=== PATIENT | male | born 1950 | race Hispanic/Latino ===

== ENCOUNTER → 2017-09-22 | Outpatient (CLI) | payer OTHER ==
--- NOTE | 2017-09-24 00:35 | Diagnostic Imaging Report ---
History: TIA, loss of vision Comparison studies: None Technique: Sagittal T2; axial DWI, FLAIR, MPGR, T1, Coronal FLAIR. Intravenous contrast: None Findings: Scalp: Normal in signal . No masses . Bone marrow: Normal in signal intensity. Extra-axial: No masses or fluid collections. Brain sulci: Appropriate for age. Ventricles: Normal in size . No hydrocephalus . Parenchyma: A few scattered T2 FLAIR hyperintense foci in the supratentorial white matter are nonspecific small vessel ischemic changes. No masses, hemorrhage, acute or chronic cortical ischemic insults. Suprasellar region: No abnormalities. Craniocervical junction: No abnormalities. Patent foramen magnum. No Chiari one malformation. Vessels: Normal flow-voids in the arteries and sinuses. IMPRESSION: 1. Mild supratentorial white matter small vessel ischemic changes. 2. Otherwise, no abnormalities. 3. Specifically, no acute vascular insults. Signed by: Dr. James Kim M.D. on 09/24/2017 12:31 AM
== END ==
LOC: MRI 08:20
PROVIDERS: ATTEND Family Medicine
DX: G45.9 Transient cerebral ischemic attack, unspecified (principal)
CPT/HCPCS: 70551

== ENCOUNTER 2021-05-09 00:41 | Emergency (ER) | payer MEDICARE, OTHER ==
[~2021-05-09] VITALS: Ht 180.3 cm; Wt 113.4 kg
[2021-05-09 01:12] LABS: BASOPHILS # (AUTO) 0.1 (0.0-0.1); BASOPHILS % 0.4 % (0.0-1.0); EOSINOPHILS # (AUTO) 0.1 (0.0-0.4); EOSINOPHILS % 0.5 % (0.0-6.0); HEMATOCRIT 43.5 % (38.2-49.6); HEMOGLOBIN 14.6 g/dL (14.0-18.0); LYMPHOCYTES % 9.5 % (18.0-39.1); MEAN CORPUSCULAR HEMOGLOBIN 31.3 pg (28-32); MEAN CORPUSCULAR HGB CONC 33.6 g/dL (31-35); MEAN CORPUSCULAR VOLUME 93.1 fL (81-99); MONOCYTES # (AUTO) 1.7 (0.2-0.8); MONOCYTES % 8.4 % (4.4-11.3); NEUTROPHILS # (AUTO) 16.7 (2.1-6.9); NEUTROPHILS % 80.7 % (38.7-80.0); PLATELET COUNT 277 x10e3/uL (140-360); RED BLOOD COUNT 4.67 x10e6/uL (4.3-5.7); RED CELL DISTRIBUTION WIDTH 13.6 % (11.7-14.4)
[2021-05-09 01:33] LABS: ALBUMIN 3.6 g/dL (3.5-5.0); ALBUMIN/GLOBULIN RATIO 0.9 (0.8-2.0); ANION GAP 16.7 mmol/L (8-16); CALCIUM 9.8 mg/dL (8.4-10.2); CREATININE, SERUM 0.94 mg/dL (0.72-1.25); POTASSIUM 3.7 mmol/L (3.5-5.1)
[2021-05-09 01:34] LABS: CLARITY,URINE SL CLOUDY (CLEAR); COLOR,URINE ORANGE (YELLOW)
[2021-05-09 01:35] LABS: KETONES,URINE NEGATIVE (NEGATIVE); LEUKOCYTE ESTERASE ,URINE NEGATIVE (NEGATIVE); NITRITE,URINE POSITIVE (NEGATIVE); PROTEIN,URINE DIPSTICK 1+ (NEGATIVE); URINE UROBILINOGEN 1 mg/dL (0.2 - 1)
[2021-05-09] MEDS ORDERED: CEFTRIAXONE 1 GM in SODIUM CHLORIDE 0.9% 50ML 50 ML IV ONE (01:45)
[2021-05-09] MEDS ORDERED: SODIUM CHLORIDE 0.9% 1000ML 1,000 ML IV ONE (02:00)
[2021-05-09] MEDS ORDERED: SODIUM CHLORIDE 0.9% 1000ML 1,000 ML ONE (02:03)
[2021-05-09 02:14] LABS: BACTERIA,URINE MANY /HPF; EPITHELIAL CELLS,URINE FEW /LPF; MUCUS,URINE MANY (RARE); RBC,URINE 0-5 /HPF (0-5)
[2021-05-09] MEDS ORDERED: CEFDINIR300 MG PO (02:33)
[2021-05-09 02:59] VITALS: BP 160/91
== END 2021-05-09 02:58 | disposition home or self-care (01) ==
LOC: ER 00:47
DX: R33.9 Retention of urine, unspecified (principal); N39.0 Urinary tract infection, site not specified; I10 Essential (primary) hypertension; E78.5 Hyperlipidemia, unspecified
CPT/HCPCS: 36415; 51702; 80053; 81001; 85025; 87086; 99283; J0696; J7030; 51700

== ENCOUNTER 2021-05-10 10:49 | Emergency (ER) | payer MEDICARE ==
[~2021-05-10] VITALS: Ht 180.3 cm; Wt 113.4 kg
[~2021-05-10 10:49] MED LIST: CEFDINIR300 MG PO
== END 2021-05-10 11:51 | disposition home or self-care (01) ==
LOC: ER 10:58
DX: T83.038A Leakage of other urinary catheter, initial encounter (principal)
CPT/HCPCS: 51700; 51702; 99282

== ENCOUNTER 2024-11-13 08:50 | Emergency (ER) | payer MEDICARE, OTHER ==
[~2024-11-13] VITALS: Ht 177.8 cm; Wt 110.4 kg
[2024-11-13] MEDS ORDERED: KETOROLAC TROMETHAMINE 30 MG/ML VIAL IM STA (09:15)
[2024-11-13] MEDS ORDERED: CLOPIDOGREL75 MG PO (09:18)
[2024-11-13] MEDS ORDERED: VERAPAMIL ER240 M1 (09:18)
[2024-11-13] MEDS ORDERED: ATORVASTATIN CA20 MG PO (09:18)
[2024-11-13] MEDS: TRAMADOL HCL 50 MG TAB PO ONE (09:34)
[2024-11-13] MEDS ORDERED: ULTRAM 50MG50 MG PO (10:07)
[2024-11-13] MEDS: LIDOCAINE HCL 1% LOCAL INJ 20 ML VIAL INJ ONE (10:15)
[2024-11-13 10:46] VITALS: PULSE 62; RESP 18; TEMP 98; O2SAT 96
== END 2024-11-13 10:46 | disposition home or self-care (01) ==
LOC: FSED 09:01
DX: S62.395A Other fracture of fourth metacarpal bone, left hand, initial encounter for closed fracture (principal); W18.39XA Other fall on same level, initial encounter; Y92.89 Other specified places as the place of occurrence of the external cause
CPT/HCPCS: 99284